=== PATIENT | male | born 1975 ===

== ENCOUNTER 2019-05-03 03:25 | Emergency (ER) | payer BC, OTHER ==
[2019-05-03] MEDS ORDERED: LEVETIRACETAM 1000 MG/NACL-ISO 1,000 MG/100 ML RTUPB IV ONE (03:38)
[2019-05-03] MEDS ORDERED: NORMAL SALINE 1000 ML 1,000 ML IV ONE (03:39)
[2019-05-03] MEDS ORDERED: ONDANSETRON HCL INJ/PF 4 MG/2 ML SDV IV ONE (03:39)
[2019-05-03 03:58] LABS: HEMATOCRIT 44.9 % (37.9-51.0); HEMOGLOBIN 14.8 g/dL (13.5-17.0); MEAN CORPUSCULAR HEMOGLOBIN 30.6 pg (27.0-33.4); MEAN CORPUSCULAR HGB CONC 32.9 g/dL (32.0-36.0); MEAN CORPUSCULAR VOLUME 93 fl (80-97); RED BLOOD COUNT 4.83 10^6/uL (4.35-5.55); RED CELL DISTRIBUTION WIDTH 14.5 % (11.5-14.0); WHITE BLOOD COUNT 14.1 10^3/uL (4.0-10.5)
--- NOTE | 2019-05-03 04:03 | ER Document Report ---
ED Seizure - General Chief Complaint: Seizure Stated Complaint: SEIZURE Time Seen by Provider: 05/03/19 03:37 Primary Care Provider: PETE MAS DO [ACTIVE STAFF] - 05/03/19 Notes: Patient is a 44-year-old male that comes to the emergency department for chief complaint of a seizure. Patient comes by EMS from home, reportedly patient had a seizure in bed tonight. EMS states patient was postictal on arrival. EMS states that states that 2 days ago he fell at work although EMS cannot explicitly tell me that he had a head injury or any particular injuries. Patient reports that he had a hemorrhagic stroke previously as well but he is unsure if this is from trauma, blood pressure, or another source. EMS did not give any medications, patient denied alcohol tonight, patient denies ever having a seizure previously. Patient takes no daily medications. Patient denies fever, he does report nausea, patient vomited for the first time just as I was entering the room. Patient states that he hurts a lot in his left shoulder and it hurts to move his left shoulder. He denies particular headache at this time. He denies recreational drugs. is in route. - Related Data Allergies/Adverse Reactions: No Known Allergies Allergy (Unverified 05/03/19 04:03) Past Medical History - General Information source: Patient - Social History Smoking Status: Never Smoker Frequency of alcohol use: None Drug Abuse: None Lives with: Family Family History: Reviewed & Not Pertinent Pulmonary Medical History: Reports: Hx Pneumonia - HAD IN 1999 Past Surgical History: Denies: Hx Adenoidectomy Review of Systems - Review of Systems Constitutional: See HPI EENT: No symptoms reported Cardiovascular: No symptoms reported Respiratory: No symptoms reported Gastrointestinal: No symptoms reported Genitourinary: No symptoms reported Male Genitourinary: No symptoms reported Musculoskeletal: See HPI Skin: No symptoms reported Hematologic/Lymphatic: No symptoms reported Neurological/Psychological: See HPI Physical Exam - Vital signs Vitals: Resp Pulse Ox 15 94 05/03/19 03:34 05/03/19 03:34 - Notes Notes: GENERAL: Patient vomited when I entered the room but he is alert and cooperative HEAD: Normocephalic, atraumatic. EYES: Pupils equal, round, and reactive to light. Extraocular movements intact. ENT: Oral mucosa moist, tongue midline but there is a small bite jaz on the tongue with previous bleeding. No significant swelling to the tongue. Oropharynx unremarkable. Airway patent. NECK: Full range of motion. Supple. Trachea midline. LUNGS: Clear to auscultation bilaterally, no wheezes, rales, or rhonchi. No respiratory distress. HEART: Regular rate and rhythm. No murmur ABDOMEN: Soft, non-tender. Non-distended. EXTREMITIES: Patient is very tender to the left shoulder joint especially over the humeral head, clavicle is unremarkable. Patient will not lift the arm but he will squeeze with normal casting finisher. Normal distal neurovascular exam. Normal extremities otherwise. BACK: No signs of trauma. No tenderness with palpation anywhere. No cervical, thoracic, lumbar midline tenderness. No saddle anesthesia, normal distal neurovascular exam. Moves all extremities in full range of motion. NEUROLOGICAL: Alert and oriented x3. Normal speech. Cranial nerves II through XII grossly intact. SKIN: Slightly flushed Course - Re-evaluation Re-evalutation: EMS unsure how long the seizure lasted. Patient appears to definitely have had a seizure, he did bite his tongue. Patient vomited as I entered the room. Patient given nausea medication, IV fluids, Keppra loading dose. Patient states he hurts in his left arm but he has no headache. Neck nontender, does not smell of alcohol. CT of the head negative, x-ray of the left shoulder does show humeral head fracture, chest x-ray unremarkable. CBC shows leukocytosis but is nonspecific. No fever. Unremarkable vital signs. No nuchal rigidity or headache on reevaluation as well. Patient feels much better after nausea medication, he was provided with pain medication for his left arm. Chemistry nonspecific, patient has been given lactated Ringer's, bicarbonate was low, potassium borderline, magnesium normal, alcohol negative, given potassium as well. came to bedside, she states that patient had a seizure for about 2 minutes, he is adjacent to the wall on the bed and he struck his left shoulder on the wall during his seizure reportedly. This does explain his fracture. He reportedly did not have a significant fall 2 days ago. Patient reevaluated. He is back to his baseline. He is stating he is still hurting and he is requesting more pain medication for his shoulder but he still denies headache. He has no other deficits or concerning symptoms. I do have a low suspicion of meningitis, he did not have a head injury, there is no intracranial hemorrhage on exam, based on his evaluation I have a very low suspicion of this. I discussed new onset seizures and precautions along with immediate follow-up for this, [place] Discussed orthopedic follow-up and humeral head fracture. Discussed with Dr. Ordonez. Because patient is back to his baseline he will be taken home, discussed return precautions at length. Patient and state appreciation and agreement with plan. Stable at time of discharge. - Vital Signs Vital signs: Temp Pulse Resp BP Pulse Ox 98.2 F 19 139/89 H 99 05/03/19 07:00 05/03/19 07:01 05/03/19 07:00 05/03/19 07:01 - Laboratory Result Diagrams: 05/03/19 03:30 05/03/19 03:30 Laboratory results interpreted by me: 05/03/19 05/03/19 03:30 03:30 WBC 14.1 H RDW 14.5 H Seg Neuts % (Manual) 30 L Lymphocytes % (Manual) 58 H Abs Lymphs (Manual) 8.9 H Potassium 3.3 L Carbon Dioxide 15 L Anion Gap 26 H Creatinine 1.51 H Est GFR (MDRD) Non-Af 50 L Magnesium 2.6 H Procedures - Immobilization left shoulder Pre-Proc Neuro Vasc Exam: Normal Immobilizer type: Sling Performed by: RN Post-Proc Neuro Vasc Exam: Normal Alignment checked and good: Yes Discharge - Discharge Clinical Impression: Seizure Fracture of humeral head, left, closed Qualifiers: Encounter type: initial encounter Qualified Code(s): S42.292A - Other displaced fracture of upper end of left humerus, initial encounter for closed fracture Condition: Stable Disposition: HOME, SELF-CARE Additional Instructions: You have a fracture in your left arm at the part of your arm that attaches to the shoulder. Wear the sling, take the pain medication if needed, call the orthopedic referral today to set up your close follow-up for additional management of this. You had a seizure tonight. The CAT scan of your head does not show any concerning findings. Please call your primary care provider today for close follow-up and additional management of this. Avoid driving until cleared to do so by your physician or neurology or you will be held liable for any accidents. Avoid any situations where the seizure could be dangerous. Return to the emergency department for any concerning symptoms including repeat seizure, severe worsening pain or swelling of the arm, vomiting, fever, or any other concerning symptoms. Prescriptions: Diazepam [Diastat Acudial] 1 each RC ASDIR PRN #1 kit PRN Reason: Oxycodone HCl/Acetaminophen [Percocet 5-325 mg Tablet] 1 - 2 tab PO TID PRN #15 tablet PRN Reason: Forms: Return to Work Referrals: PETE MAS DO [ACTIVE STAFF] - 05/03/19
[2019-05-03] MEDS ORDERED: FENTANYL CITRATE INJ/PF 100 MCG/2 ML AMPUL IV ONE (04:10)
[2019-05-03 04:14] LABS: ALKALINE PHOSPHATASE 76 U/L (38-126); ASPARTATE AMINO TRANSFERASE 34 U/L (17-59); BILIRUBIN,TOTAL 0.2 mg/dL (0.2-1.3); BLOOD UREA NITROGEN 12 mg/dL (7-20); CALCIUM 9.6 mg/dL (8.4-10.2); GLUCOSE 108 mg/dL (75-110); POTASSIUM 3.3 mmol/L (3.6-5.0); TOTAL PROTEIN 7.5 g/dL (6.3-8.2)
[2019-05-03 04:17] LABS: ABSOLUTE LYMPHOCYTES# (MANUAL) 8.9 10^3/uL (0.5-4.7); ABSOLUTE MONOCYTES # (MANUAL) 0.6 10^3/uL (0.1-1.4); BASOPHILS % (MANUAL) 0 % (0-2); EOSINOPHILS % (MANUAL) 3 % (0-6); LYMPHOCYTES % (MANUAL) 58 % (13-45); MONOCYTES % (MANUAL) 4 % (3-13); SEGMENTED NEUTROPHILS % (MAN) 30 % (42-78); TOTAL CELLS COUNTED 100
[2019-05-03 04:18] LABS: PLATELET COMMENT ADEQUATE
[2019-05-03 04:19] LABS: ANISOCYTOSIS SLIGHT; CARBON DIOXIDE 15 mmol/L (22-30); CHLORIDE 102 mmol/L (98-107); PLATELET COUNT 247 10^3/uL (150-450); TEAR DROP CELLS SLIGHT
[2019-05-03 04:30] LABS: ALCOHOL < 10 mg/dL (NONE DETECTED); ANION GAP 26 (5-19)
--- NOTE | 2019-05-03 04:31 | RADIOLOGY REPORT (SQ) ---
EXAM DESCRIPTION: XR CHEST 1 VIEW COMPLETED DATE/TME: 05/03/2019 03:38 CLINICAL HISTORY: 44 years, Male, seizure, vomiting, ? aspiration COMPARISON: None. NUMBER OF VIEWS: One TECHNIQUE: AP view of the chest LIMITATIONS: None. FINDINGS: The lungs are clear. The heart is normal in size. There is no pneumothorax or pleural effusion. There is a mildly displaced and comminuted fracture involving the left humeral head. IMPRESSION: Mildly displaced and comminuted fracture of the left humeral head copyright 2011 [employer]- All Rights Reserved
--- NOTE | 2019-05-03 04:32 | RADIOLOGY REPORT (SQ) ---
EXAM DESCRIPTION: XR SHOULDER 2 OR MORE VIEWS COMPLETED DATE/TME: 05/03/2019 03:38 CLINICAL HISTORY: 44 years, Male, pain COMPARISON: None. NUMBER OF VIEWS: Three TECHNIQUE: Three views of the left shoulder LIMITATIONS: None. FINDINGS: Mildly displaced and comminuted fracture involving the humeral head. No other fracture is identified. The AC joint is intact. There is soft tissue swelling around the fracture site. IMPRESSION: Mildly displaced and comminuted fractures of the left humeral head. copyright 2010 [employer]- All Rights Reserved
--- NOTE | 2019-05-03 04:33 | RADIOLOGY REPORT (SQ) ---
EXAM DESCRIPTION: CT HEAD WITHOUT IV CONTRAST COMPLETED DATE/TME: 05/03/2019 03:37 CLINICAL HISTORY: 44 years, Male, seizure, vomiting, ? aspiration COMPARISON: None. TECHNIQUE: Axial CT images of the brain were obtained without contrast. Sagittal and coronal reformats were performed. DL [id number] Images stored on PACS. All CT scanners at this facility use dose modulation, iterative reconstruction, and/or weight based dosing when appropriate to reduce radiation dose to as low as reasonably achievable (ALARA). [facility]: Dose Right [facility]: CareDose [facility]: Dose Right [facility]: Teradose 4D [facility]: [place] LIMITATIONS: None. FINDINGS: No acute cortical infarct, hemorrhage, mass, edema, hydrocephalus, or extra-axial fluid collection. The alvarez-white matter differentiation is preserved. The paranasal sinuses and mastoid air cells are clear. There is no acute fracture. IMPRESSION: No acute intracranial abnormality TECHNICAL DOCUMENTATION: Quality ID # [id number]: Final reports with documentation of one or more dose reduction techniques (e.g., Automated exposure control, adjustment of the mA and/or kV according to patient size, use of iterative reconstruction technique) copyright 2011 [employer]- All Rights Reserved
[2019-05-03] MEDS ORDERED: MORPHINE SULFATE 10 MG/ML INJ IV ONE (04:39)
[2019-05-03] MEDS ORDERED: POTASSIUM CHLORIDE 10 MEQ TABLET.ER PO ONE (04:40)
[2019-05-03] MEDS ORDERED: RINGERS SOLUTION,LACTATED 1,000 ML IV ONE (04:40)
[2019-05-03] MEDS ORDERED: ONDANSETRON ODT 4 MG TAB (6 TAB/ER DISP) PO PRN (06:57)
[2019-05-03] MEDS ORDERED: HYDROCODONE/ACETAMINOPHEN 5-325 MG (6 TAB/ER DISP) PO PRN (06:57)
[2019-05-03 07:08] VITALS: BP 139/89
--- NOTE | 2019-05-03 12:02 | EKG REPORT ---
SEVERITY:- NORMAL ECG - SINUS RHYTHM : Confirmed by: Kelin Pham 03-May-2019 12:02:17
== END 2019-05-03 07:16 | disposition home or self-care (01) ==
LOC: ER 03:25
DX: R56.9 Unspecified convulsions (principal); S42.292A Other displaced fracture of upper end of left humerus, initial encounter for closed fracture; W22.01XA Walked into wall, initial encounter; Y93.89 Activity, other specified; Y92.003 Bedroom of unspecified non-institutional (private) residence as the place of occurrence of the external cause; S00.572A Other superficial bite of oral cavity, initial encounter; X58.XXXA Exposure to other specified factors, initial encounter; R11.2 Nausea with vomiting, unspecified; D72.829 Elevated white blood cell count, unspecified
CPT/HCPCS: 93005; 99285; 96361; 96375; 96365; 36415; 80307; 83735; 85025; 80053; 71045; 73030; 70450; 93010; J3010; J2270; J2405; J7030; J7120; J1953